=== PATIENT | female | born 1980 | race African-American/Black ===

== ENCOUNTER 2017-11-06 18:21 | Emergency (ER) | payer OTHER ==
[2017-11-06 18:54] VITALS: BP 130/73; PULSE 66; TEMP 97.9; BMI 19.8
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
== END 2017-11-06 20:01 | disposition home or self-care (01) ==
LOC: JERFT 18:21
DX: S16.1XXA Strain of muscle, fascia and tendon at neck level, initial encounter (principal); V78.6XXA Passenger on bus injured in noncollision transport accident in traffic accident, initial encounter; Y92.414 Local residential or business street as the place of occurrence of the external cause; Y93.89 Activity, other specified; Y99.8 Other external cause status
CPT/HCPCS: 99281-25

== ENCOUNTER 2023-05-08 16:31 | Emergency (ER) | payer OTHER ==
[2023-05-08 16:36] VITALS: BP 112/60; PULSE 89; RESP 18; TEMP 98.3; BMI 20.7
[2023-05-08] MEDS ORDERED: ACETAMINOPHEN 500 MG TABLET (FP) PO ONE (17:50)
[2023-05-08] MEDS ORDERED: FAMOTIDINE 20 MG TABLET PO ONE (17:50)
[2023-05-08] MEDS ORDERED: KETOROLAC TROMETHAMINE 15 MG/ML VIAL IM ONE (17:50)
[2023-05-08] MEDS ORDERED: ACETAMINOPHEN 500 MG TABLET (FP) ONE (18:08)
[2023-05-08] MEDS ORDERED: KETOROLAC TROMETHAMINE 15 MG/ML VIAL ONE (18:08)
[2023-05-08] MEDS ORDERED: FAMOTIDINE 20 MG TABLET ONE (18:08)
== END 2023-05-08 18:58 | disposition home or self-care (01) ==
LOC: JERFT 16:31
PROC: 3E0233Z Introduction of Anti-inflammatory into Muscle, Percutaneous Approach (ICD-10-PCS; principal; 2023-05-08)
DX: M79.672 Pain in left foot (principal); M72.2 Plantar fascial fibromatosis
CPT/HCPCS: 99284-25